=== PATIENT | male | born 1995 | race American Indian/Alaskan Native ===

== ENCOUNTER 2019-06-04 09:49 | Emergency (ER) | payer OTHER ==
[2019-06-04 10:03] VITALS: BP 131/82
[2019-06-04] MEDS ORDERED: ROCEPHIN IM ONE (11:57)
[2019-06-04] MEDS ORDERED: ZITHROMAX PO ONE (11:57)
[2019-06-04] MEDS ORDERED: XYLOCAINE 1% MPF 5 mL INFILTRATI ONE (11:57)
--- NOTE | 2019-06-04 11:58 | Emergency Department Report ---
ED Dysuria HPI - HPI Chief Complaint: Urogenital-Male Stated Complaint: STD CHECK Time Seen by Provider: 06/04/19 11:55 Duration: 3 Days Severity: Mild Symptoms: Dysuria: Yes, Frequency: No, Suprapubic Pain: No, Flank Pain: No, Fever: No, Hematuria: No, Abdominal Pain: No, Previous UTI's: No Other History: 23 YO WITH KNOWN EXPOSURE TO CHLAMYDIA. TINGLING WITH URINATION. ED Review of Systems ROS: Stated complaint: STD CHECK Other details as noted in HPI Comment: All other systems reviewed and negative ED Past Medical Hx - Past Medical History Previous Medical History?: No - Surgical History Past Surgical History?: No - Family History Family history: no significant - Social History Smoking Status: Current Every Day Smoker Substance Use Type: Marijuana Dysuria Exam - Exam General: Vital signs noted. No distress. Alert and acting appropriately. Exam: Yes Moist Mucous Membranes, No CVA Tenderness, No Abdominal Tenderness, No Rigidity or Guarding ED Course Vital Signs 06/04/19 10:02 Temperature 97.6 F Pulse Rate 62 Respiratory 16 Rate Blood Pressure 131/82 O2 Sat by Pulse 98 Oximetry ED Medical Decision Making - Medical Decision Making KNOWN EXPOSURE PUBLIC HEALTH RISK SO TREATED EMPIRICALLY TINGLING WITH URINATION NO TESTICULAR PAIN DC HOME WITH FOLLOW UP WITH PCP REFERRAL GIVEN Vital Signs 06/04/19 10:02 Temperature 97.6 F Pulse Rate 62 Respiratory 16 Rate Blood Pressure 131/82 O2 Sat by Pulse 98 Oximetry Critical care attestation.: If time is entered above; I have spent that time in minutes in the direct care of this critically ill patient, excluding procedure time. ED Disposition Clinical Impression: STD exposure Disposition: DC-01 TO HOME OR SELFCARE Is pt being admited?: No Does the pt Need Aspirin: No Condition: Stable Instructions: Safe Sex (ED) Referrals: EHSAN VILLAREAL MD [Staff Physician] - 3-5 Days Time of Disposition: 11:57
== END 2019-06-04 12:35 | disposition home or self-care (01) ==
LOC: ED 09:49
DX: A64 Unspecified sexually transmitted disease (principal); F17.200 Nicotine dependence, unspecified, uncomplicated; F12.10 Cannabis abuse, uncomplicated
CPT/HCPCS: 96372; 99282; J0696

== ENCOUNTER 2019-06-19 22:13 | Emergency (ER) | payer SELFPAY ==
[2019-06-19 22:55] VITALS: BP 121/74
--- NOTE | 2019-06-19 23:40 | XRay Report ---
CHEST 2 VIEWS INDICATION / CLINICAL INFORMATION: Chest pain. COMPARISON: None available. FINDINGS: SUPPORT DEVICES: None. HEART / MEDIASTINUM: The heart size and pulmonary vasculature are normal. The aorta is normal in miriam amber. LUNGS / PLEURA: No significant pulmonary or pleural abnormality. No pneumothorax. ADDITIONAL FINDINGS: No significant additional findings. IMPRESSION: No acute findings. Signer Name: Uche Bonilla MD Signed: 06/19/2019 11:35 PM Workstation Name: [id number]
== END 2019-06-20 00:05 | disposition left against medical advice (07) ==
LOC: ED 22:13
DX: R07.9 Chest pain, unspecified (principal); Z53.21 Procedure and treatment not carried out due to patient leaving prior to being seen by health care provider
CPT/HCPCS: 71046; 93005; 93010